=== PATIENT | male | born 1950 | race Caucasian/White ===

== ENCOUNTER 2025-01-07 14:58 | Outpatient (AMB) | payer MEDICARE, SELFPAY ==
--- NOTE | 2025-01-07 15:05 | MHC.PC.OV ---
Vital Signs 01/07/25 15:18 01/07/25 15:37 01/07/25 15:38 Height 5 ft 4 in Weight 152 lb 8 oz BMI 26.2 BP 169/77 H 150/70 H 128/60 Blood Pressure Location Lt brachial Lt brachial Lt brachial Position Sitting Sitting Sitting Respiration 16 Pulse 75 Pulse Source Pulse Oximeter Auscultation Temp 97.9 F Temp Source Oral Pulse Oximetry (%) 96 Oxygen Delivery Method Room Air Intake Visit Reasons: [facility] care Intake Note: patient here for new patient visit Manager Ob Required: No Allergies No Known Allergies Allergy (Verified 01/07/25 15:22) Medication List - Last Reconciled 01/07/25 by Bryson Esqueda CNP amlodipine 10 mg PO DAILY aspirin 81 mg PO DAILY atenolol 100 mg PO DAILY atorvastatin 20 mg PO DAILY blood sugar diagnostic (FreeStyle Lite Strips) As directed insulin degludec (Tresiba FlexTouch U-100 insulin) 20 units subcut BEDTIME lisinopril 40 mg PO DAILY metformin 1,000 mg PO BID tamsulosin mg PO Tobacco use date assessed: 01/07/25 Fall risk assessment: No Falls in past year Last assessed Fall Risk: 01/07/25 Dental Screening Dental Screen Date: 01/07/25 Did you have a dental visit in the last 12 months?: Yes Did you have a dental problem in the last 6 months where you did not have access to dental care?: No Was dental information given to patient?: Patient has dentist HPI HPI Comments History of Present Illness Details 74-year-old male presents to [facility]. He admits to taking his medications as prescribed without adverse reactions. Prior PCP? - Dr Guzman [facility] primary care Last office visit/CPE/labs - Over a year ago Acute issue(s) - None Past Medical History - DM, HTN, HLD, prostate cancer, shingles Surgical History - None Family History - Dad: HTN - Mom: DM Social History - Nonsmoker. Does not vape. Does not drink alcohol. Denies recreational drug use - Has been making healthy dietary choices. Exercises routinely. Generally sleep well Health maintenance - Last eye exam was in 06/[address] Motley: normal. Next eye appt. is in 06/2025. Encourage to sign release form for PCP to obtain ophthalmology record - Last dental visit was 4 months ago - Last tetanus vaccine unknown. Will research record when available - He notes that he is not vaccinated for shingles or pneumonia - Has not been vaccinated for the flu this season; declines vaccination - He notes that he has never had a colonoscopy. Declines referral for a colonoscopy. Cologuard ordered - Last podiatry visit was 10/08/2024 [facility]ists [facility] Medical History (Updated 01/07/25 @ 15:56 by Bryson Esqueda CNP) Diabetes Shingles Prostate cancer Prostate troubles Family History (Updated 01/07/25 @ 15:24 by Josefa Wynne MA) Father High blood pressure Mother Diabetes Social History Housing: House Patient Tobacco Use Status: Never used Tobacco e-Cigarette/Vaping Use: Never Used Second Hand Smoke Exposure: No service: No Current occupational status: retired Current occupational exposures/hazards: No Cognitive needs: No Hearing needs: No Vision needs: No Questionnaire PHQ-9 Over the last 2 weeks, how often have you been bothered by any of the following problems? 1. Little interest or pleasure in doing things: not at all 2. Feeling down, depressed, or hopeless: not at all 3. Trouble falling or staying asleep, or sleeping too much: not at all 4. Feeling tired or having little energy: not at all 5. Poor appetite or overeating: not at all 6. Feeling bad about yourself - or that you are a failure or have let yourself or your family down: not at all 7. Trouble concentrating on things, such as reading the newspaper or watching television: not at all 8. Moving or speaking so slowly that other people could have noticed. Or the opposite - being so fidgety or restless that you have been moving around a lot more than usual: not at all 9. Thoughts that you would be better off or of hurting yourself in some way: not at all Total score: 0 Depression Screening Interpretation: Negative Depression Screening Done: Yes [id number] - PHQ-9 Billing: Yes Source: Developed by Drs. Hector Gaines, Mari Fuller, Ayush Hall and colleagues, with an educational galina from [employer]. Thrive Questionnaire Date Thrive assessed: 01/07/25 I am a: Patient What is your living situation today?: I have a steady place to live Within the past 12 months, did the food you bought not last and you didn't have the money to get more?: Never true Within the past 12 months, did you worry whether your food would run out before you got money to buy more?: Never true Do you have trouble paying for medicines?: No Do you have trouble getting transportation to medical appointments?: No Do you have trouble paying your heating and electricity bill?: No Do you have trouble taking care of your child, family member or friend?: No Do you have trouble with day-to-day activities such as bathing, preparing meals, shopping, managing finances, etc.?: No Are you currently unemployed and looking for a job?: No Are you interested in more education?: No Please select the resources that you would like help with: None Currently or been in a relationship where the following occur: I choose not to answer THRIVE Score: 0 AUDIT C Alcohol Use Questionnaire (AUDIT-C) 1. How often do you have a drink containing alcohol?: Monthly or less 2. How many drinks containing alcohol do you have on a typical day when you are drinking?: 1 or 2 3. How often do you have six or more drinks on one occasion?: Never Total Score: 1 Score Reviewed/Action Taken: No BC-7 AMB Questionnaire BC-7 Date BC - 7 assessed: 01/07/25 Feeling nervous, anxious, or on edge: 0 = Not at all Not being able to stop or control worryin = Not at all Worrying too much about different things: 0 = Not at all Trouble relaxin = Not at all Being so restless that it is hard to sit still: 0 = Not at all Becoming easily annoyed or irritable: 0 = Not at all Feeling afraid as if something awful might happen: 0 = Not at all Total BC-7 score (0-4 normal; 5-9 mild; 10-14 moderate; 15-21 severe): 0 Source: Developed by Drs. Hector Gaines, Mari Fuller, Ayush Hall and colleagues, with an educational galina from [employer]. BC-7 Assessment Billing BC-7 Assessment Tool: BC-7 Assessment 81965 Review of Systems Const Details: Denies chills, Denies fatigue, Denies fever(s), Denies headache(s) and Denies weakness HEENT Denies change in vision, Denies dizziness, Denies headache(s), Denies hearing loss, Denies nasal congestion, Denies sinus pain, Denies sinus pressure and Denies sore throat Card Denies chest pain, Denies lightheadedness, Denies dyspnea and Denies other (palpitations) Resp Denies cough, Denies dyspnea and Denies wheezing GI Denies abdominal pain, Denies melena, Denies hematochezia, Denies change in bowel habits, Denies dyspepsia and Denies nausea Denies hematuria and Denies dysuria Musc Denies abnormal gait, Denies myalgias, Denies arthralgias, Denies numbness and Denies tingling Skin/Breast Denies rash, Denies unusual bruising and Denies wounds Neuro Denies abnormal gait, Denies dizziness, Denies headache(s), Denies memory loss, Denies numbness, Denies Sensory deficit (Neuro), Denies tingling and Denies weakness Psych Denies anxiety, Denies depression and Denies memory loss Endo Denies cold intolerance, Denies fatigue, Denies heat intolerance, Denies polydipsia and Denies polyuria Kd/Lymph Denies easy bleeding and Denies easy bruising Aller/Immun Denies wheezing Physical exam (Primary Care) Vital Signs: Last Vital Signs Temp 97.9 F 01/07/25 15:18 Pulse 75 01/07/25 15:18 Resp 16 01/07/25 15:18 BP 128/60 01/07/25 15:38 Pulse Ox 96 01/07/25 15:18 Oxygen Delivery Method Room Air 01/07/25 15:18 BMI result Body Mass Index 26.2 Tobacco/Smoking Status: Tobacco use Status Tobacco use date assessed 01/07/25 01/07/25 15:15 Patient Tobacco Use Status Never used Tobacco 01/07/25 15:15 e-Cigarette/Vaping Use Never Used 01/07/25 15:15 PHQ-9: PHQ-9 Score PHQ-9: Total score 0 01/07/25 15:31 Depression Screening Interpretation: Negative Thrive Assessment: Date of Thrive Assessment Date Thrive assessed 01/07/25 01/07/25 15:09 Currently or been in a relationship where the following occur: I choose not to answer Const Other: General: no acute distress, well developed, alert and awake Nutritional Appearance: well nourished Orientation/consciousness: patient oriented x3 [facility] Head: Yes normocephalic and Yes atraumatic Ears: hearing grossly normal bilaterally and TM's normal bilaterally General nose exam: Normal external nose present and Normal nares present Mouth: Normal oral and palatal mucosa present and moist mucous membranes Teeth and gingiva: dentition normal Throat: Yes oropharynx normal Eyes Pupils: Equal, round and reactive pupils present and Pupil accommodation reflex normal EOM: EOMs intact bilaterally Neck Neck: Yes normal visual inspection, Yes no lymphadenopathy and Yes trachea midline Thyroid: Thyroid normal Carotids: no bruits Lymphatic: no lymphadenopathy noted Chest Chest palpation & inspection: normal inspection of the chest Resp Effort & Inspection: normal respiratory effort Auscultation: clear to auscultation bilaterally Cardio Rate: regular rate Rhythm: regular rhythm Heart sounds: S1 normal heart sound present, S2 normal heart sound present, no gallops, no murmurs and no rubs Bruits: no abdominal aortic bruits and no carotid bruits GI Palpation (GI): No Abdominal aortic bruit present, Soft to palpation, nontender, No hepatosplenomegaly present and No Rebound tenderness present Auscultation: normal bowel sounds General: Yes no CVA tenderness Back/Spine/Pelvis Back: no CVA tenderness Cervical Spine: cervical ROM normal and No Cervical spine tenderness Thoracic/Lumbar Spine: thoraco-lumbar ROM normal, No pain with thoraco-lumbar ROM, No thoracic spinal tenderness and No lumbar spinal tenderness Skin General: warm and dry. Normal skin color. Normal skin turgor Lesions: no lesions Rashes: no rashes Trauma: no lacerations or abrasions Wounds: no wounds Nails: normal Neuro General: patient oriented x3, gait normal and CN's II-XI intact bilaterally Cranial nerves: Yes Equal, round and reactive pupils present Cognition (Neuro): normal cognition Gait exam (Neuro): Normal gait present Motor exam (neuro): 5/5 motor strength present throughout Sensory Exam: No Sensory deficit (Neuro) Deep tendon reflexes (DTR's): Right patellar reflex intensity grade: 2+ and Left patellar reflex intensity grade: 2+ Extrem General: Yes normal to inspection, No edema and No calf tenderness Psych Appearance: grossly normal Affect: normal affect Attitude: cooperative Thought process: Normal thought process present Results AMB Hemoglobin A1c AMB Hemoglobin A1c 7.9 % Last Edit by SIOBHAN Murphy on 01/07/25 16:06 Results Reviewed Results Reviewed: Laboratory Last Values Hgb A1c (Clinic) 7.9 % (4.0-6.0) H 01/07/25 15:59 Coding Level of Care Code New Pt Level 4 (23003) New Pt Prev Care >65yr (36532) Diagnoses Normal physical examination, routine Z00.00 Hypertension I10 Diabetes E11.9 Prostate cancer C61 Colon cancer screening Z12.11 Vaccine counseling Z71.85 Laboratory tests ordered as part of a complete physical exam (CPE) Z00.00 Additional Codes BC-7 Assessment Billing - BC-7 Assessment Tool: BC-7 Assessment 01774 ([id number]) PHQ-9 - 65752 - PHQ-9 Billing: Yes ([id number]) Time Spent (min) 75 Assessment & Plan Assessment & Plan (1) Normal physical examination, routine: Code(s): Z00.00 - Encounter for general adult medical examination without abnormal findings Category: Medical Plan: No significant functional limitation noted. Continue current treatment regimen. Healthy diet and routine exercise encouraged. Advised to perform blood work and follow-up in 1 month for diabetes and labs review. Return sooner with symptoms or concerns. Verbalized understanding and agreed with the treatment plan. (2) Hypertension: Code(s): I10 - Essential (primary) hypertension Category: Medical Plan: Resting blood pressure is 128/60, within goal of less than 130/80. Continue current treatment regimen. Low-sodium diet encouraged. Will continue to monitor. Verbalized understanding and agreed with the plan. (3) Diabetes: Code(s): E11.9 - Type 2 diabetes mellitus without complications Category: Medical Plan: A1c today is 7.9%, above goal of less than 7.0%. Will increase Tresiba to 25 units at bedtime; encouraged to administer as prescribed. Continue to take metformin as prescribed. ADA diet and routine exercise encouraged. Advised to monitor fasting and nonfasting glucose daily, record readings, and bring to next appointment. Follow-up in 1 month. Verbalized understanding and agreed with the plan. (4) Prostate cancer: Code(s): C61 - Malignant neoplasm of prostate Category: Medical Plan: Continue current treatment regimen. Followed by [facility], and [facility]. (5) Colon cancer screening: Code(s): Z12.11 - Encounter for screening for malignant neoplasm of colon Category: Medical Plan: He notes that he has never had a colonoscopy. Declines referral for a colonoscopy. Cologuard ordered. (6) Vaccine counseling: Code(s): Z71.85 - Encounter for immunization safety counseling Category: Medical Plan: He notes that he is not vaccinated for shingles or pneumonia. Instructed on the importance of vaccination and encouraged to get vaccinated for shingles and pneumonia. She may get a vaccine from the local pharmacy. Verbalized understanding and agreed with the plan. (7) Laboratory tests ordered as part of a complete physical exam (CPE): Code(s): Z00.00 - Encounter for general adult medical examination without abnormal findings Category: Medical Plan: Fasting labs ordered as part of a complete physical exam. Advised to fast for at least 10 hours before getting labs drawn. May drink water Verbalized understanding and agreed with treatment plan. Plan Total time for this visit was 75 minutes. This include 55 minutes with patient, doing physical exam and chronic disease management/treatment, and 20 minutes reviewing, coordinating plan of care, and documenting. Orders: Orders Comprehensive Jones. Panel Fast 01/07/25 Z00.00 - Encounter for general adult medical examination without abnormal findings Microalbumin, Random (w Creat) 01/07/25 Z00.00 - Encounter for general adult medical examination without abnormal findings PSA, Ultra Sensitive 01/07/25 Z00. - Encounter for general adult medical examination without abnormal findings UA CC w/rflx Micro + Cult 01/07/25 Z00. - Encounter for general adult medical examination without abnormal findings Complete Blood Count Auto Diff 01/07/25 Z00. - Encounter for general adult medical examination without abnormal findings Lipid Panel 01/07/25 Z00. - Encounter for general adult medical examination without abnormal findings TSH reflex Free T4 01/07/25 Z00.00 - Encounter for general adult medical examination without abnormal findings Vitamin D 25-OH Total 01/07/25 Z00. - Encounter for general adult medical examination without abnormal findings Referrals Cologuard Test Z12.11 - Encounter for screening for malignant neoplasm of colon, Z12.12 - Encounter for screening for malignant neoplasm of rectum Medications: New insulin degludec (Tresiba FlexTouch U-100 insulin) 25 units (0.25 mL) subcut BEDTIME 15 mL 4RF Patient Instructions: No significant functional limitation noted. Continue current treatment regimen. Healthy diet and routine exercise encouraged. Perform fasting lab work before next visit. Follow-up in 2 weeks for hypertension and labs review. Return sooner with symptoms or concerns. Verbalized understanding and agreed with the treatment plan.
[2025-01-07 15:18] VITALS: BP 169/77; PULSE 75; RESP 16; TEMP 36.6; O2SAT 96; BMI 26.2
[2025-01-07 15:37] VITALS: BP 150/70
[2025-01-07 15:38] VITALS: BP 128/60
--- OUTSIDE RECORDS SUMMARY | 2025-01-07 16:45 | XMS_ITS | Encounter Summary ---
Author Organization [facility] Address [address] [place] [address] Care Team Providers Care Oil Spot Washer Name Role Phone Kiley Ruelas MD Primary Care Provider [phone] Encounter Details Date Type Department Care Team (Late st Contact Info) Description 11/14/2024 Lab Requisition [facility] - Main Lab [address] [facility] [address] Matthew Hansen MD [address] [place] [address] Elevated prostate specific antigen (PSA) Social History Tobacco Use Types Packs/Day Years Used Date Smoking Tobacco: Never Assessed Sex and Gender Information Value Date Recorded Sex Assigned at Not on file Legal Sex Male 9:38 AM EDT Gender Identity Not on file Sexual Orientation Not on file documented as of this encounter Plan of Treatment Not on file documented as of this encounter Procedures Procedure Name Priority Date/Time Associated Diagnosis Comments AP OUTSIDE CONSULT Routine 11/13/2024 Elevated prostate specific antigen (PSA) documented in this encounter Results * Anatomic pathology outside consult (11/13/2024) Final Diagnosis A. Prostate, Left Mid Donnellson Biopsy: Benign prostate tissue. B. Prostate, Left Lat Donnellson Biopsy: Benign prostate tissue. C. Prostate, Left Mid Mid Biopsy: Benign prostate tissue. D. Prostate, Left Lat Mid Biopsy: Benign prostate tissue. E. Prostate, Left Mid Base Biopsy: Benign prostate tissue with chronic inflammation. F. Prostate, Left Lat Base Biopsy: Benign prostate tissue. G. Prostate, Right Mid Donnellson Biopsy: Benign prostate tissue H. Prostate, Right Lat Donnellson Biopsy: Benign prostate tissue. I. Prostate, Right Mid Mid Biopsy: Acinar adenocarcinoma, conventional (usual) type, Liv score 3 + 3 = 6 (Grade group 1). (See note.) The carcinoma involves approximately 20% of the tissue submitted for review and spans approximately 3 mm in greatest dimension in a single core. Note: A small focus of ill-formed glands at one edge of the tumor is attributed to an artifact of processing (squeeze/crush) and is not considered sufficient to warrant a diagnosis of Liv pattern 4 in this core biopsy. (See also parts K and L, below.) J. Prostate, Right Lat Mid Biopsy: Acinar adenocarcinoma, conventional (usual) type, [place]ville score 3 + 3 = 6 (Grade group 1). The carcinoma involves approximately 10% of the tissue submitted for review and spans approximately 1.5 mm in greatest dimension in a single core. K. Prostate, Right Mid Base Biopsy: Acinar adenocarcinoma, conventional (usual) type, Liv score 3 + 4 = 7 (Grade group 2). Longville pattern 4 comprises approximately 10% of the carcinoma. The carcinoma involves 50-55% of the tissue submitted for review and spans approximately 9 mm in greatest dimension in a single core. Perineural invasion is present. L. Prostate, Right Lat Base Biopsy: Acinar adenocarcinoma, conventional (usual) type, [place]ville score 3 + 4 = 7 (Grade group 2). [place]ville pattern 4 comprises approximately 20% of the carcinoma. The carcinoma involves approximately 50% of the tissue submitted for review and spans approximately 8 mm in greatest dimension in a single core. M. Prostate, Right Peripheral Zone Mid Biopsy: Minute focus of acinar adenocarcinoma, conventional (usual) type, too small for definitive grading, involving less than 5% of one tissue core and spanning less than 0.5 mm in greatest dimension. 11/16/2024 3:49 PM EDT [facility] Comment Lead Oxide Mill Tender slide(s) from this case (parts I and L) have been presented at Anatomic Pathology Intradepartmental Review Conference on 11/15/24. 11/16/2024 3:49 PM EDT [facility] Clinical Information Elevated PSA Last PSA total = 10.8 (08/22/24) [id number] 11/16/2024 3:49 PM EDT [facility] Gross Description A. Prostate, Left Mid Donnellson Biopsy: Received, properly labeled, are two H and E stained slides and two unstained slides. B. Prostate, Left Lat Donnellson Biopsy: Received, properly labeled, are two H and E stained slides and two unstained slides. C. Prostate, Left Mid Mid Biopsy: Received, properly labeled, are two H and E stained slides and two unstained slides. D. Prostate, Left Lat Mid Biopsy: Received, properly labeled, are two H and E stained slides and two unstained slides. E. Prostate, Left Mid Base Biopsy: Received, properly labeled, are two H and E stained slides and two unstained slides. F. Prostate, Left Lat Base Biopsy: Received, properly labeled, are two H and E stained slides and two unstained slides. G. Prostate, Right Mid Donnellson Biopsy: Received, properly labeled, are two H and E stained slides and two unstained slides. H. Prostate, Right Lat Donnellson Biopsy: Received, properly labeled, are two H and E stained slides and two unstained slides. I. Prostate, Right Mid Mid Biopsy: Received, properly labeled, are two H and E stained slides and two unstained slides. J. Prostate, Right Lat Mid Biopsy: Received, properly labeled, are two H and E stained slides and two unstained slides. K. Prostate, Right Mid Base Biopsy: Received, properly labeled, are two H and E stained slides and two unstained slides. L. Prostate, Right Lat Base Biopsy: Received, properly labeled, are two H and E stained slides and two unstained slides. M. Prostate, Right Peripheral Zone Mid Biopsy: Received, properly labeled, are two H and E stained slides and two unstained slides. /al 11/16/2024 3:49 PM EDT [facility] Disclaimer Unless otherwise specified, all tissue is 10% NB formalin fixed and paraffin embedded. Technical pathology services provided by [facility] at [address] [place] [address] [address], [place] [address] (CLIA #[id number]/Abby Walsh MD, Folder Taper Operator) 11/16/2024 3:49 PM EDT [facility] Tissue Prostate / Unknown 11/13/20242024 9:46 AM EDT Tissue specimen (specimen) Prostate / Unknown 11/13/2024 11/14/2024 9: 46 AM EDT Tissue specimen (specimen) Prostate / Unknown 11/13/2024 11/14/2024 9: 46 AM EDT Tissue specimen (specimen) Prostate / Unknown 11/13/2024 11/14/2024 9: 46 AM EDT Tissue specimen (specimen) Prostate / Unknown 11/13/2024 11/14/2024 9: 46 AM EDT Tissue specimen (specimen) Prostate / Unknown 11/13/2024 11/14/2024 9: 46 AM EDT Tissue specimen (specimen) Prostate / Unknown 11/13/2024 11/14/2024 9: 46 AM EDT Tissue specimen (specimen) Prostate / Unknown 11/13/2024 11/14/2024 9: 46 AM EDT Tissue specimen (specimen) Prostate / Unknown 11/13/2024 11/14/2024 9: 46 AM EDT Tissue specimen (specimen) Prostate / Unknown 11/13/2024 11/14/2024 9: 46 AM EDT Tissue specimen (specimen) Prostate / Unknown 11/13/2024 11/14/2024 9: 46 AM EDT Tissue specimen (specimen) Prostate / Unknown 11/13/2024 11/14/2024 9: 46 AM EDT Tissue specimen (specimen) Prostate / Unknown 11/13/2024 11/14/2024 9: 46 AM EDT us Matthew Hansen MD LAB PATHOLOGY ORDERABLES Final R esult [facility] ([facility] [address] [place] [address], documented in this encounter Visit Diagnoses Diagnosis Elevated prostate specific antigen (PSA) documented in this encounter Care Teams Oil Spot Washer Relationship Specialty Start Date End Date Kiley Ruelas MD [address] [place] [id number] PCP - General Internal Medicine 11/14/24 documented as of this encounter
== END 2025-01-07 16:35 | disposition home or self-care (01) ==
LOC: HO.HMCFM 14:59
PROVIDERS: PCP Nurse Practitioner Family; Visit Provider Nurse Practitioner Family
DX: E11.9 Type 2 diabetes mellitus without complications (principal)

== ENCOUNTER → 2025-01-07 14:58 | Outpatient (BNVA) | payer MEDICARE, SELFPAY | PROVIDERS: PCP Nurse Practitioner Family; Visit Provider Nurse Practitioner Family | DX: Z00.00 Encounter for general adult medical examination without abnormal findings (principal); E11.9 Type 2 diabetes mellitus without complications; I10 Essential (primary) hypertension; C61 Malignant neoplasm of prostate; Z71.85 Encounter for immunization safety counseling | CPT/HCPCS: 83036; 96127; 99202; 99387 ==

== ENCOUNTER 2025-02-04 10:44 | Outpatient (REF) | payer MEDICARE, SELFPAY ==
--- OUTSIDE RECORDS SUMMARY | 2025-02-04 11:40 | XMS_ITS | Encounter Summary ---
Author Organization [facility] Address [address] [place] [address] Care Team Providers Care Inspector Technician Name Role Phone Kiley Ruelas MD Primary Care Provider [phone] Encounter Details Date Type Department Care Team (Late st Contact Info) Description 11/14/2024 Lab Requisition [facility] - Main Lab [address] [facility] [place] [address] Matthew Hansen MD [address] [place] [address] Elevated prostate specific antigen (PSA) Social History [...] (11/13/2024) Final Diagnosis A. Prostate, Left Mid [place] Biopsy: Benign prostate tissue. B. Prostate, Left Lat [place] Biopsy: Benign prostate tissue. C. Prostate, Left Mid Mid Biopsy: Benign prostate tissue. D. Prostate, Left Lat [place] Biopsy: Benign prostate tissue. E. Prostate, Left Mid [place] Biopsy: Benign prostate tissue with chronic inflammation. F. Prostate, Left Lat [place] Biopsy: Benign prostate tissue. G. Prostate, Right Mid [place] Biopsy: Benign prostate tissue H. Prostate, Right Lat [place] Biopsy: Benign prostate tissue. I. Prostate, Right [...] Mid Biopsy: Acinar adenocarcinoma, conventional (usual) type, [place] score 3 + 3 = 6 (Grade group 1). The carcinoma involves approximately 10% of the tissue submitted for review and spans approximately 1.5 mm in greatest dimension in a single core. K. Prostate, Right Mid [place] Biopsy: Acinar adenocarcinoma, conventional (usual) type, Liv score 3 + 4 = 7 (Grade group 2). [place] pattern 4 comprises approximately 10% of the carcinoma. The carcinoma involves 50-55% of the tissue submitted for review and spans approximately 9 mm in greatest dimension in a single core. Perineural invasion is present. L. Prostate, Right Lat [place] Biopsy: Acinar adenocarcinoma, conventional (usual) type, [place] score 3 + 4 = 7 (Grade group 2). [place] pattern 4 comprises approximately 20% of the [...] in greatest dimension. 11/16/2024 3:49 PM EDT [facility] Comment Well Driller slide(s) from this case (parts I and L) have been presented at Anatomic Pathology Intradepartmental Review Conference on 11/15/24. 11/16/2024 3:49 PM EDT [facility] Clinical Information Elevated PSA Last PSA total = 10.8 (08/22/24) [id number] 11/16/2024 3:49 PM EDT [facility] Gross Description A. Prostate, Left Mid [place] Biopsy: Received, properly labeled, are two H and E stained slides and two unstained slides. B. Prostate, Left Lat [place] Biopsy: Received, properly labeled, are two H [...] two unstained slides. G. Prostate, Right Mid [place] Biopsy: Received, properly labeled, are two H and E stained slides and two unstained slides. H. Prostate, Right Lat [place] Biopsy: Received, properly labeled, are two H [...] unstained slides. /al 11/16/2024 3:49 PM EDT [facility] Disclaimer Unless otherwise specified, all tissue is 10% NB formalin fixed and paraffin embedded. Technical pathology services provided by [facility] at [address] [place] [address] [address], [place] [address] (CLIA #[id number]/Abby Walsh MD, Die Trouble Shooter) 11/16/2024 3:49 PM EDT [facility] Tissue Prostate / Unknown 11/13/20242024 9:46 [...] MD LAB PATHOLOGY ORDERABLES Final R esult [facility] ([facility] [address] [place] [address], documented in this encounter Visit Diagnoses Diagnosis Elevated prostate specific antigen (PSA) documented in this encounter Care Teams Inspector Technician Relationship Specialty Start Date End Date Kiley Ruelas MD [address] [place] [id number] PCP - General Internal Medicine 11/14/24 documented as of this encounter
[2025-02-04 15:15] LABS: Appearance Urine Clear; Glucose Urine UA Negative (Negative); PH 5.5 (5.0-9.0); Specific Gravity - Urine 1.020 (1.005-1.025); UMIC TRIGGER UACC YES
[2025-02-04 15:28] LABS: MANUAL DIFF FLAG NO
[2025-02-04 15:47] LABS: Hematocrit 41.9 % (42.0-52.0); Hemoglobin 13.9 g/dl (14.0-18.0); Imm Gran Abs Auto 0.02 X10*3/uL (0.00-0.03); Imm Gran Pct Auto 0.4 % (0.0-0.4); Lymphocytes Absolute Auto 1.1 X10*3/uL (1.2-4.9); Mean Corpuscular HGB Conc 33.2 g/dl (31.0-36.0); Mean Corpuscular Hemoglobin 28.9 pg (27.0-33.0); Mean Corpuscular Volume 87.1 fL (80.0-98.0); NRBC Abs Auto 0.000 X10*3/uL (0.0-0.012); NRBC Pct Auto 0.0 /100WBC (0.0-0.2); Platelet Count 194 X10*3/uL (160-400); Red Blood Count 4.81 X10*6/uL (4.60-5.80); White Blood Count 5.0 X10*3/uL (4.8-10.8)
[2025-02-04 16:20] LABS: Alanine Aminotransferase 20 U/L (0-40); Albumin Level 4.1 g/dL (3.5-5.0); Alkaline Phosphatase 64 U/L (39-117); Anion Gap 12 (12-20); Aspartate Amino Transferase 33 U/L (5-37); Blood Urea Nitrogen 24 mg/dL (9-16); Calcium 9.3 mg/dL (8.4-10.2); Carbon Dioxide 26 mmol/L (22-29); Chloride 109 mmol/L (96-108); Cholesterol 94 mg/dL (<200); Estimated Glomerular Filt Rate > 60; HDL Cholesterol 25 mg/dL (>40); Potassium 3.8 mmol/L (3.3-5.1); Sodium 143 mmol/L (135-145); Total Protein 6.5 g/dL (6.5-8.0); Triglycerides 64 mg/dL (<150)
[2025-02-04 16:37] LABS: Microalbum/Creatinine Ratio Ur 92.7 ug/mg cr (<30)
[2025-02-09 22:03] LABS: PSA, Ultra Sensitive 7.80 ng/mL
== END 2025-02-04 10:45 | disposition home or self-care (01) ==
LOC: HO.WFDLDS 10:44
PROVIDERS: Visit Provider Nurse Practitioner Family
DX: Z00.00 Encounter for general adult medical examination without abnormal findings (principal)
CPT/HCPCS: 36415; 80053; 80061; 81001; 82043; 82306; 82570; 84153; 84443; 85025

== ENCOUNTER 2025-02-08 11:45 | Outpatient (AMB) | payer MEDICARE, SELFPAY ==
--- NOTE | 2025-02-08 11:48 | MHC.PC.OV ---
Vital Signs 02/08/25 11:55 02/08/25 12:26 Height 5 ft 4 in Weight 149 lb 7 oz BMI 25.6 BP 152/78 H 134/70 Blood Pressure Location Lt brachial Rt brachial Position Sitting Sitting Respiration 15 Pulse 81 Pulse Source Pulse Oximeter Temp 98.4 F Temp Source Temporal Artery Scan Pulse Oximetry (%) 97 Oxygen Delivery Method Room Air Intake Visit Reasons: 1 mos DM, labs review Allergies No Known Allergies Allergy (Verified 02/08/25 11:50) Tobacco use date assessed: 02/08/25 Fall risk assessment: No Falls in past year Last assessed Fall Risk: 02/08/25 Dental Screening Dental Screen Date: 02/08/25 Did you have a dental visit in the last 12 months?: Yes Did you have a dental problem in the last 6 months where you did not have access to dental care?: No Was dental information given to patient?: Patient has dentist HPI HPI Comments History of Present Illness Details 75-year-old male presents for diabetes and recent labs review follow-up. He admits to taking his medications as prescribed without adverse reactions. He has not taking his medications this morning, nor has he had breakfast; he thought he had to do fasting blood work before this visit. He notes that he has been making healthy lifestyle changes. His home blood glucose log from 01/08/2025 to 02/08/2025 has fasting glucose between 71-130, and glucose before dinner between 108-163. He offers no complaints and denies acute symptoms at this time. [facility] Medical History (Updated 02/08/25 @ 12:03 by Bryson Esqueda CNP) Diabetes Shingles Prostate cancer Prostate troubles Family History (Updated 01/07/25 @ 15:24 by Josefa Wynne MA) Father High blood pressure Mother Diabetes Social History Housing: House Alcohol intake: never Patient Tobacco Use Status: Never used Tobacco e-Cigarette/Vaping Use: Never Used Second Hand Smoke Exposure: No service: No Current occupational status: retired Current occupational exposures/hazards: No Cognitive needs: No Hearing needs: No Vision needs: No Questionnaire Thrive Questionnaire Date Thrive assessed: 11/20/24 I am a: Patient What is your living situation today?: I have a steady place to live Within the past 12 months, did the food you bought not last and you didn't have the money to get more?: Never true Within the past 12 months, did you worry whether your food would run out before you got money to buy more?: Never true Do you have trouble paying for medicines?: No Do you have trouble getting transportation to medical appointments?: No Do you have trouble paying your heating and electricity bill?: No Do you have trouble taking care of your child, family member or friend?: No Do you have trouble with day-to-day activities such as bathing, preparing meals, shopping, managing finances, etc.?: No Are you currently unemployed and looking for a job?: No Are you interested in more education?: No Please select the resources that you would like help with: None Currently or been in a relationship where the following occur: I choose not to answer THRIVE Score: 0 BC-7 AMB Questionnaire BC-7 Date BC - 7 assessed: 01/07/25 Source: Developed by Drs. Hector Gaines, Mari Fuller, Ayush Hall and colleagues, with an educational galina from [employer]. Review of Systems Const Details: Const Denies chills, Denies fatigue, Denies fever(s), Denies headache(s) and Denies weakness ENT Denies dizziness and Denies headache(s) Card Denies chest pain, Denies lightheadedness, Denies dyspnea and Denies other (Palpitations) Resp Denies cough, Denies dyspnea, Denies wheezing and Denies other ( shortness of breath) GI Denies abdominal pain, Denies melena, Denies hematochezia, Denies change in bowel habits, Denies dyspepsia and Denies nausea Denies hematuria and Denies dysuria Musc Denies abnormal gait, Denies myalgias, Denies arthralgias, Denies numbness and Denies tingling Skin/Breast Denies rash, Denies unusual bruising and Denies wounds Neuro Denies abnormal gait, Denies dizziness, Denies headache(s), Denies memory loss, Denies numbness, Denies Sensory deficit (Neuro), Denies tingling and Denies weakness Psych Denies anxiety, Denies depression, Denies memory loss Endo Denies cold intolerance, Denies fatigue, Denies heat intolerance, Denies polydipsia and Denies polyuria Aller/Immun Denies wheezing Physical exam (Primary Care) Tobacco/Smoking Status: Tobacco use Status Tobacco use date assessed 01/07/25 02/08/25 11:48 Patient Tobacco Use Status Never used Tobacco 02/08/25 11:48 e-Cigarette/Vaping Use Never Used 02/08/25 11:48 Thrive Assessment: Date of Thrive Assessment Date Thrive assessed 11/20/24 02/08/25 11:48 Currently or been in a relationship where the following occur: I choose not to answer Const Other: General: no acute distress and well developed Nutritional Appearance: well nourished Orientation/consciousness: patient oriented x3 HENMT Head: Yes normocephalic and Yes atraumatic Eyes General: appearance normal, both eyes and all related structures Pupils: Equal, round and reactive pupils present EOM: EOMs intact bilaterally Resp Effort & Inspection: normal respiratory effort Auscultation: clear to auscultation bilaterally Cardio Rate: regular rate Rhythm: regular rhythm Heart sounds: S1 normal heart sound present, S2 normal heart sound present, no gallops, no murmurs and no rubs GI Palpation (GI): No Abdominal aortic bruit present, Soft to palpation, nontender, No hepatosplenomegaly present and No Rebound tenderness present Auscultation: normal bowel sounds General: Yes no CVA tenderness Back/Spine/Pelvis Back: no CVA tenderness Cervical Spine: cervical ROM normal and No Cervical spine tenderness Thoracic/Lumbar Spine: thoraco-lumbar ROM normal, No pain with thoraco-lumbar ROM, No thoracic spinal tenderness and No lumbar spinal tenderness Extrem General: Yes normal to inspection, No edema and No calf tenderness Skin General: warm and dry. Normal skin color. Normal skin turgor Neuro General: patient oriented x3, gait normal and no focal neuro deficit Cranial nerves: Yes Equal, round and reactive pupils present Cognition (Neuro): normal cognition Gait exam (Neuro): Normal gait present Sensory Exam: No Sensory deficit (Neuro) Psych Appearance: grossly normal Affect: normal affect Attitude: cooperative Thought process: Normal thought process present Coding Level of Care Code Est Pt Level 4 (03315) Diagnoses Diabetes E11.9 Hypertension I10 Normocytic anemia D64.9 Microalbuminuria R80.9 Hyperlipidemia E78.5 Assessment & Plan Assessment & Plan (1) Diabetes: Code(s): E11.9 - Type 2 diabetes mellitus without complications Category: Medical Plan: A1c was 7.9% a month ago. His home blood glucose log from 01/08/2025 to 02/08/2025 has fasting glucose between 71-130, and glucose before dinner between 108 and 163. ADA diet and routine exercise encouraged. Will recheck A1c in 2 months. Verbalized understanding and agreed with the plan. (2) Hypertension: Code(s): I10 - Essential (primary) hypertension Category: Medical Plan: Resting blood pressure is 134/70, slightly above goal of less than 130/80. He has not taking his medications this morning Continue current treatment regimen. Low-sodium diet encouraged. Follow-up in 2 months. Verbalized understanding and agreed with the plan. (3) Normocytic anemia: Code(s): D64.9 - Anemia, unspecified Category: Medical Plan: Recent H&H levels are slightly low, 13.9/41.9 respectively, MCV is normal. Likely anemia of chronic disease such as diabetes and hypertension. Will monitor CBC annually or as needed. Verbalized understanding and agreed with the plan. (4) Microalbuminuria: Code(s): R80.9 - Proteinuria, unspecified Category: Medical Plan: Recent urine microalbumin/creatinine ratio is elevated, 92.3. May be related to dehydration or uncontrolled diabetes. Continue current treatment regimen. Adequate hydration encouraged. Perform repeat urine microalbumin lab work before next visit. Follow-up in 2 months. Verbalized understanding and agreed with the plan. (5) Hyperlipidemia: Code(s): E78.5 - Hyperlipidemia, unspecified Category: Medical Plan: Recent HDL is low, 25. Triglycerides, total cholesterol, and LDL levels are normal. LDL is 57, goal is less than 100. Continue current treatment regimen. Advised to limit foods high in saturated fat and avoid foods high in trans fat. Routine exercise encouraged. Will monitor lipid panel level annually or as needed. Verbalized understanding and agreed with the plan. Orders: Orders Microalbumin, Random (w Creat) 2 Months R80.9 - Proteinuria, unspecified
[2025-02-08 11:55] VITALS: BP 152/78; PULSE 81; RESP 15; TEMP 36.9; O2SAT 97; BMI 25.6
--- OUTSIDE RECORDS SUMMARY | 2025-02-08 12:03 | XMS_ITS | Encounter Summary ---
Author Organization [facility] Address [address] [place] [address] Care Team Providers Care Gripper Attacher Name Role Phone Kiley Ruelas MD Primary Care Provider [phone] Encounter Details Date Type Department Care Team (Late st Contact Info) Description 11/14/[address] [facility] - Main Lab [address] [facility] [place] [address] Matthew Hansen MD [address] [place] [address] Elevated prostate specific antigen (PSA) Social History [...] (11/13/2024) Final Diagnosis A. Prostate, Left Mid [place] Biopsy: Benign prostate tissue. B. Prostate, Left Lat [place] Biopsy: Benign prostate tissue. C. Prostate, Left Mid Mid Biopsy: Benign prostate tissue. D. Prostate, Left Lat [place] Biopsy: Benign prostate tissue. E. Prostate, Left Mid [place] Biopsy: Benign prostate tissue with chronic inflammation. F. Prostate, Left Lat [place] Biopsy: Benign prostate tissue. G. Prostate, Right Mid [place] Biopsy: Benign prostate tissue H. Prostate, Right Lat [place] Biopsy: Benign prostate tissue. I. Prostate, Right [...] Mid Biopsy: Acinar adenocarcinoma, conventional (usual) type, [place] score 3 + 3 = 6 (Grade group 1). The carcinoma involves approximately 10% of the tissue submitted for review and spans approximately 1.5 mm in greatest dimension in a single core. K. Prostate, Right Mid [place] Biopsy: Acinar adenocarcinoma, conventional (usual) type, Liv score 3 + 4 = 7 (Grade group 2). [place] pattern 4 comprises approximately 10% of the carcinoma. The carcinoma involves 50-55% of the tissue submitted for review and spans approximately 9 mm in greatest dimension in a single core. Perineural invasion is present. L. Prostate, Right Lat [place] Biopsy: Acinar adenocarcinoma, conventional (usual) type, [place] score 3 + 4 = 7 (Grade group 2). [place] pattern 4 comprises approximately 20% of the [...] in greatest dimension. 11/16/2024 3:49 PM EDT [facility] Comment Supervisor Area slide(s) from this case (parts I and L) have been presented at Anatomic Pathology Intradepartmental Review Conference on 11/15/24. 11/16/2024 3:49 PM EDT [facility] Clinical Information Elevated PSA Last PSA total = 10.8 (08/22/24) [id number] 11/16/2024 3:49 PM EDT [facility] Gross Description A. Prostate, Left Mid [place] Biopsy: Received, properly labeled, are two H and E stained slides and two unstained slides. B. Prostate, Left Lat [place] Biopsy: Received, properly labeled, are two H [...] two unstained slides. G. Prostate, Right Mid [place] Biopsy: Received, properly labeled, are two H and E stained slides and two unstained slides. H. Prostate, Right Lat [place] Biopsy: Received, properly labeled, are two H [...] unstained slides. /al 11/16/2024 3:49 PM EDT [facility] Disclaimer Unless otherwise specified, all tissue is 10% NB formalin fixed and paraffin embedded. Technical pathology services provided by [facility] at [address] [place] [address] [address], [place] [address] (CLIA #[id number]/Abby Walsh MD, Commercial Appraiser) 11/16/2024 3:49 PM EDT [facility] Tissue Prostate / [...] MD LAB PATHOLOGY ORDERABLES Final R esult [facility] [address] [place] [address], documented in this encounter Visit Diagnoses Diagnosis Elevated prostate specific antigen (PSA) documented in this encounter Care Teams Gripper Attacher Relationship Specialty Start Date End Date Kiley Ruelas MD [address] [place] [id number] PCP - General Internal Medicine 11/14/24 documented as of this encounter
[2025-02-08 12:26] VITALS: BP 134/70
== END 2025-02-08 12:37 | disposition home or self-care (01) ==
LOC: HO.HMCFM 11:46
PROVIDERS: PCP Nurse Practitioner Family; Visit Provider Nurse Practitioner Family
DX: E11.9 Type 2 diabetes mellitus without complications (principal); I10 Essential (primary) hypertension; D64.9 Anemia, unspecified; R80.9 Proteinuria, unspecified; E78.5 Hyperlipidemia, unspecified

== ENCOUNTER → 2025-02-08 11:45 | Outpatient (BNVA) | payer MEDICARE, SELFPAY | PROVIDERS: PCP Nurse Practitioner Family; Visit Provider Nurse Practitioner Family | DX: E11.9 Type 2 diabetes mellitus without complications (principal); I10 Essential (primary) hypertension; D64.9 Anemia, unspecified; R80.9 Proteinuria, unspecified; E78.5 Hyperlipidemia, unspecified | CPT/HCPCS: 99212 ==

== ENCOUNTER 2025-04-12 13:04 | Outpatient (REF) | payer MEDICARE, SELFPAY ==
--- OUTSIDE RECORDS SUMMARY | 2025-04-12 13:08 | XMS_ITS | Encounter Summary ---
Author Organization [facility] Address [address] [place] [address] Care Team Providers Care Plastics Worker Name Role Phone Kiley Ruelas MD Primary Care Provider [phone] Encounter Details Date Type Department Care Team (Late st Contact Info) Description 11/14/2024 Lab Requisition [facility] - Main Lab [address] [facility] [place] [address] Matthew Hansen MD [address] [place] [address] Elevated prostate specific antigen (PSA) Social History [...] (11/13/2024) Final Diagnosis A. Prostate, Left Mid [place] Biopsy: Benign prostate tissue. B. Prostate, Left Lat [place] Biopsy: Benign prostate tissue. C. Prostate, Left Mid [place] Biopsy: Benign prostate tissue. D. Prostate, Left Lat [place] Biopsy: Benign prostate tissue. E. Prostate, Left Mid [place] Biopsy: Benign prostate tissue with chronic inflammation. F. Prostate, Left Lat [place] Biopsy: Benign prostate tissue. G. Prostate, Right Mid [place] Biopsy: Benign prostate tissue H. Prostate, Right Lat [place] Biopsy: Benign prostate tissue. I. Prostate, Right [...] + 4 = 7 (Grade group 2). Liv pattern 4 comprises approximately 10% of the carcinoma. The carcinoma involves 50-55% of the tissue submitted for review and spans approximately 9 mm in greatest dimension in a single core. Perineural invasion is present. L. Prostate, Right Lat [place] Biopsy: Acinar adenocarcinoma, conventional (usual) type, Liv score 3 + 4 = 7 (Grade group 2). [place] pattern 4 comprises approximately 20% of the [...] in greatest dimension. 11/16/2024 3:49 PM EDT [facility] Comment Operations Support Analyst slide(s) from this case (parts I and L) have been presented at Anatomic Pathology Intradepartmental Review Conference on 11/15/24. 11/16/2024 3:49 PM EDT [facility] Clinical Information Elevated PSA Last PSA total = 10.8 (08/22/24) [id number] 11/16/2024 3:49 PM EDT [facility] Gross Description A. Prostate, Left Mid [place] Biopsy: Received, properly labeled, are two H and E stained slides and two unstained slides. B. Prostate, Left Lat [place] Biopsy: Received, properly labeled, are two H [...] two unstained slides. G. Prostate, Right Mid [place] Biopsy: Received, properly labeled, are two H and E stained slides and two unstained slides. H. Prostate, Right Lat [place] Biopsy: Received, properly labeled, are two H [...] unstained slides. /al 11/16/2024 3:[address] [facility] Disclaimer Unless otherwise specified, all tissue is 10% NB formalin fixed and paraffin embedded. Technical pathology services provided by [facility] at [address] [place] [address] [address], [place] [address] (CLIA #[id number]/Abby Walsh MD, Barrel Rifler Hook) 11/16/2024 3:[address] [facility] Tissue Prostate / Unknown 11/13/20242024 [...] MD LAB PATHOLOGY ORDERABLES Final R esult [facility] ([facility] [address] [place] [address], documented in this encounter Visit Diagnoses Diagnosis Elevated prostate specific antigen (PSA) documented in this encounter Care Teams Plastics Worker Relationship Specialty Start Date End Date Kiley Ruelas MD [address] [place] [id number] PCP - General Internal Medicine 11/14/24 documented as of this encounter
--- OUTSIDE RECORDS SUMMARY | 2025-04-12 13:08 | XMS_ITS | Clinical Summary ---
Author Organization [address] Address [address] [place] [address] Phone Care Team Providers Care Wildlife Ecologist Name Role Phone Kiley Ruelas MD Primary Care Provider [phone] Social History Tobacco Use Types Packs/Day Years Used Date Smoking Tobacco: Never Assessed Sex and Gender Information Value Date Recorded Sex Assigned at Not on file Legal Sex Male 9:38 AM EDT Gender Identity Not on file Sexual Orientation Not on file Plan of Treatment Health Maintenance Due Date Last Done Comments DTaP,Tdap,and Td Vaccines (1 - Tdap) 01/24/1971 Pneumococcal Vaccine: 50+ Ye ars (1 of 1 - PCV) 01/24/2002 Zoster Vaccines (1 of 2) 01/24/2002 Depression Screening 07/25/2024 Abdominal Aortic Aneurysm (A AA) Screen 11/15/2024 Cholesterol Screening (Lipid Panel) 11/15/2024 Colorectal Cancer Screening: Colonoscopy 11/15/2024 Falls Risk Assessment 11/15/2024 Hepatitis C Screening 11/15/2024 Medicare Annual Wellness Visit 11/15/2024 Social Influencers of Health Screening 11/15/2024 COVID-19 Vaccine ( - 2023-2 5 season) 2025 Influenza Vaccine (#1) 2025 RSV Immunization Adult Patie nts (1 - 1-dose 75+ series) 01/24/2027 HIB Vaccines Aged Out No longer eligi ble based on patient's age to complete this topic HPV Vaccines Aged Out No longer eligi ble based on patient's age to complete this topic Hepatitis A Vaccines Aged Out No long er eligible based on patient's age to complete this topic Hepatitis B Vaccines Aged Out No long er eligible based on patient's age to complete this topic IPV Vaccines Aged Out No longer eligi ble based on patient's age to complete this topic MMR Vaccines Aged Out No longer eligi ble based on patient's age to complete this topic Meningococcal ACWY Vaccine Aged Out N o longer eligible based on patient's age to complete this topic Meningococcal B Vaccine Aged Out No l onger eligible based on patient's age to complete this topic RSV Immunization Patients Un imleda 20 months Aged Out No longer eligible b ased on patient's age to complete this topic Varicella Vaccines Aged Out No longer eligible based on patient's age to complete this topic Insurance [employer] Care Teams Wildlife Ecologist Relationship Specialty Start Date End Date Kiley Ruelas MD [address] [place] [address] [address] [place], [place] [phone] PCP - General Internal Medicine 11/14/24
[2025-04-12 14:38] LABS: Appearance Urine Clear; Glucose Urine UA >=1000 mg/dL (Negative); PH 5.5 (5.0-9.0); Specific Gravity - Urine >= 1.030 (1.005-1.025); UMIC TRIGGER UACC YES
[2025-04-12 15:14] LABS: Microalbum/Creatinine Ratio Ur 118.9 ug/mg cr (<30)
== END 2025-04-12 13:05 | disposition home or self-care (01) ==
LOC: HO.WFDLDS 13:04
PROVIDERS: Visit Provider Nurse Practitioner Family
DX: R80.9 Proteinuria, unspecified (principal)
CPT/HCPCS: 81001; 82043; 82570

== ENCOUNTER 2025-04-15 10:00 | Outpatient (AMB) | payer MEDICARE, SELFPAY ==
--- NOTE | 2025-04-15 10:15 | MHC.PC.OV ---
Vital Signs 04/15/25 10:22 04/15/25 10:54 Height 5 ft 4 in Weight 161 lb 2 oz BMI 27.7 BP 175/81 H 124/60 Blood Pressure Location Lt brachial Lt brachial Position Sitting Sitting Respiration 16 Pulse 75 Pulse Source Pulse Oximeter Temp 99 F Temp Source Oral Pulse Oximetry (%) 97 Oxygen Delivery Method Room Air Intake Visit Reasons: 2 mos DM, HTN, microalbuminuria - see comment Intake Note: patient here for 2 months DM, HTN and microalbuminuria Flap Curer Required: No Allergies No Known Allergies Allergy (Verified 04/15/25 10:48) Medication List - Last Reconciled 04/15/25 by Bryson Esqueda CNP amlodipine 10 mg PO DAILY aspirin 81 mg PO DAILY atenolol 100 mg PO DAILY atorvastatin 20 mg PO DAILY blood sugar diagnostic (FreeStyle Lite Strips) As directed finasteride 5 mg PO DAILY insulin degludec 25 units subcut BEDTIME lisinopril 40 mg PO DAILY metformin 1,000 mg PO BID tamsulosin mg PO Tobacco use date assessed: 04/15/25 Fall risk assessment: No Falls in past year Last assessed Fall Risk: 04/15/25 Dental Screening Dental Screen Date: 04/15/25 Did you have a dental visit in the last 12 months?: Yes Did you have a dental problem in the last 6 months where you did not have access to dental care?: No Was dental information given to patient?: Patient has dentist HPI HPI Comments History of Present Illness Details 75-year-old male presents for hypertension, diabetes, and microalbuminuria follow-up. He admits to taking his medications as prescribed without adverse reactions. His home blood glucose average between 77 and less than 200. He notes that often consumes foods that are high in carbs. He exercises routinely. He offers no complaints and denies acute symptoms at this time. [facility] Medical History (Updated 04/15/25 @ 11:04 by Bryson Esqueda CNP) Diabetes Shingles Prostate cancer Prostate troubles Family History Father High blood pressure Mother Diabetes Social History (Updated 02/08/25 @ 11:55 by Cheryle Thorne MA) Housing: House Alcohol intake: never Patient Tobacco Use Status: Never used Tobacco e-Cigarette/Vaping Use: Never Used Second Hand Smoke Exposure: No service: No Current occupational status: retired Current occupational exposures/hazards: No Cognitive needs: No Hearing needs: No Vision needs: No Questionnaire Thrive Questionnaire Date Thrive assessed: 11/20/24 I am a: Patient What is your living situation today?: I have a steady place to live Within the past 12 months, did the food you bought not last and you didn't have the money to get more?: Never true Within the past 12 months, did you worry whether your food would run out before you got money to buy more?: Never true Do you have trouble paying for medicines?: No Do you have trouble getting transportation to medical appointments?: No Do you have trouble paying your heating and electricity bill?: No Do you have trouble taking care of your child, family member or friend?: No Do you have trouble with day-to-day activities such as bathing, preparing meals, shopping, managing finances, etc.?: No Are you currently unemployed and looking for a job?: No Are you interested in more education?: No Please select the resources that you would like help with: None Currently or been in a relationship where the following occur: I choose not to answer THRIVE Score: 0 BC-7 AMB Questionnaire BC-7 Date BC - 7 assessed: 01/07/25 Source: Developed by Drs. Hector Gaines, Mari Fuller, Ayush Hall and colleagues, with an educational galina from [employer]. Review of Systems Const Details: Const Denies chills, Denies fatigue, Denies fever(s), Denies headache(s) and Denies weakness ENT Denies dizziness and Denies headache(s) Card Denies chest pain, Denies lightheadedness, Denies dyspnea and Denies other (Palpitations) Resp Denies cough, Denies dyspnea, Denies wheezing and Denies other ( shortness of breath) GI Denies abdominal pain, Denies melena, Denies hematochezia, Denies change in bowel habits, Denies dyspepsia and Denies nausea Denies hematuria and Denies dysuria Musc Denies abnormal gait, Denies myalgias, Denies arthralgias, Denies numbness and Denies tingling Skin/Breast Denies rash, Denies unusual bruising and Denies wounds Neuro Denies abnormal gait, Denies dizziness, Denies headache(s), Denies memory loss, Denies numbness, Denies Sensory deficit (Neuro), Denies tingling and Denies weakness Psych Denies anxiety, Denies depression, Denies memory loss Endo Denies cold intolerance, Denies fatigue, Denies heat intolerance, Denies polydipsia and Denies polyuria Aller/Immun Denies wheezing Physical exam (Primary Care) Vital Signs: Last Vital Signs Temp 99 F 04/15/25 10:22 Pulse 75 04/15/25 10:22 Resp 16 04/15/25 10:22 BP 175/81 H 04/15/25 10:22 Pulse Ox 97 04/15/25 10:22 Oxygen Delivery Method Room Air 04/15/25 10:22 BMI result Body Mass Index 27.7 Tobacco/Smoking Status: Tobacco use Status Tobacco use date assessed 04/15/25 04/15/25 10:25 Patient Tobacco Use Status Never used Tobacco 04/15/25 10:18 e-Cigarette/Vaping Use Never Used 04/15/25 10:18 Thrive Assessment: Date of Thrive Assessment Date Thrive assessed 11/20/24 04/15/25 10:18 Currently or been in a relationship where the following occur: I choose not to answer Const Other: General: no acute distress and well developed Nutritional Appearance: well nourished Orientation/consciousness: patient oriented x3 HENMT Head: Yes normocephalic and Yes atraumatic Eyes General: appearance normal, both eyes and all related structures Pupils: Equal, round and reactive pupils present EOM: EOMs intact bilaterally Resp Effort & Inspection: normal respiratory effort Auscultation: clear to auscultation bilaterally Cardio Rate: regular rate Rhythm: regular rhythm Heart sounds: S1 normal heart sound present, S2 normal heart sound present, no gallops, no murmurs and no rubs GI Palpation (GI): No Abdominal aortic bruit present, Soft to palpation, nontender, No hepatosplenomegaly present and No Rebound tenderness present Auscultation: normal bowel sounds General: Yes no CVA tenderness Back/Spine/Pelvis Back: no CVA tenderness Cervical Spine: cervical ROM normal and No Cervical spine tenderness Thoracic/Lumbar Spine: thoraco-lumbar ROM normal, No pain with thoraco-lumbar ROM, No thoracic spinal tenderness and No lumbar spinal tenderness Extrem General: Yes normal to inspection, No edema and No calf tenderness Skin General: warm and dry. Normal skin color. Normal skin turgor Neuro General: patient oriented x3, gait normal and no focal neuro deficit Cranial nerves: Yes Equal, round and reactive pupils present Cognition (Neuro): normal cognition Gait exam (Neuro): Normal gait present Sensory Exam: No Sensory deficit (Neuro) Psych Appearance: grossly normal Affect: normal affect Attitude: cooperative Thought process: Normal thought process present Results AMB Hemoglobin A1c AMB Hemoglobin A1c 7.9 % Last Edit by Josefa Wynne MA on 04/15/25 11:04 Coding Level of Care Code Est Pt Level 4 (79363) Diagnoses Hypertension I10 Diabetes E11.9 Microalbuminuria R80.9 Encounter for colorectal cancer screening using Cologuard test Z12.11; Z12.12 Assessment & Plan Assessment & Plan (1) Hypertension: Code(s): I10 - Essential (primary) hypertension Category: Medical Plan: Resting blood pressure is 124/60, within goal of less than 130/80. Continue current treatment regimen. Low-sodium diet encouraged. Follow-up in 3 months or sooner with symptoms or concerns. Verbalized understanding and agreed with the plan. (2) Diabetes: Code(s): E11.9 - Type 2 diabetes mellitus without complications Category: Medical Plan: A1c today is 7.9%, above goal of less than 7.0%. Previous A1c was 7.9%. Tresiba increased to 30 units at bedtime; advised to administer as prescribed. Continue to take metformin as prescribed. ADA diet and routine exercise encouraged. Will recheck A1c in 3 months. Verbalized understanding and agreed with the plan. (3) Microalbuminuria: Code(s): R80.9 - Proteinuria, unspecified Category: Medical Plan: Recent urine microalbumin/creatinine ratio is elevated, 118.9, previous level was 92.7. Likely due to uncontrolled diabete or dehydration or both. Instructed on importance of management of his diabetes. Adequate hydration encouraged. Will recheck urine microalbumin in 3 months. Verbalized understanding and agreed with the plan. (4) Encounter for colorectal cancer screening using Cologuard test: Code(s): Z12.11 - Encounter for screening for malignant neoplasm of colon; Z12.12 - Encounter for screening for malignant neoplasm of rectum Category: Medical Plan: Recent negative Cologuard test reviewed with the patient. Orders: Orders AMB Hemoglobin A1c Today Z13.9 - Encounter for screening, unspecified Medications: Changed From insulin degludec 25 units subcut BEDTIME To insulin degludec 30 units (0.3 mL) subcut BEDTIME 15 mL 4RF
[2025-04-15 10:22] VITALS: BP 175/81; PULSE 75; RESP 16; TEMP 37.2; O2SAT 97; BMI 27.7
[2025-04-15 10:54] VITALS: BP 124/60
--- OUTSIDE RECORDS SUMMARY | 2025-04-15 12:16 | XMS_ITS | Encounter Summary ---
Author Organization [facility] Address [address] [place] [address] Care Team Providers Care Postal Service Window Clerk Name Role Phone Kiley Ruelas MD Primary Care Provider [phone] Encounter Details Date Type Department Care Team (Late st Contact Info) Description 11/14/2024 Lab Requisition [facility] - Main Lab [address] [facility] [place] [address] Matthew Hansen MD [address] [place] [address] Elevated prostate specific antigen (PSA) Social History [...] (11/13/2024) Final Diagnosis A. Prostate, Left Mid [place] Biopsy: Benign prostate tissue. B. Prostate, Left Lat [place] Biopsy: Benign prostate tissue. C. Prostate, Left Mid Mid Biopsy: Benign prostate tissue. D. Prostate, Left Lat [place] Biopsy: Benign prostate tissue. E. Prostate, Left Mid [place] Biopsy: Benign prostate tissue with chronic inflammation. F. Prostate, Left Lat [place] Biopsy: Benign prostate tissue. G. Prostate, Right Mid [place] Biopsy: Benign prostate tissue H. Prostate, Right Lat [place] Biopsy: Benign prostate tissue. I. Prostate, Right [...] + 4 = 7 (Grade group 2). [place] pattern 4 comprises approximately 20% of the [...] in greatest dimension. 11/16/2024 3:49 PM EDT [facility] Comment Cisco Network Engineer slide(s) from this case (parts I and L) have been presented at Anatomic Pathology Intradepartmental Review Conference on 11/15/24. 11/16/2024 3:49 PM EDT [facility] Clinical Information Elevated PSA Last PSA total = 10.8 (08/22/24) [id number] 11/16/2024 3:49 PM EDT [facility] Gross Description A. Prostate, Left Mid [place] Biopsy: Received, properly labeled, are two H and E stained slides and two unstained slides. B. Prostate, Left Lat [place] Biopsy: Received, properly labeled, are two H [...] two unstained slides. G. Prostate, Right Mid [place] Biopsy: Received, properly labeled, are two H and E stained slides and two unstained slides. H. Prostate, Right Lat [place] Biopsy: Received, properly labeled, are two H [...] unstained slides. /al 11/16/2024 3:49 PM EDT [facility] Disclaimer Unless otherwise specified, all tissue is 10% NB formalin fixed and paraffin embedded. Technical pathology services provided by [facility] at [address] [place] [address] [address], [place] [address] (CLIA #[id number]/Abby Walsh MD, Tool And Cutter Grinder) 11/16/2024 3:49 PM EDT [facility] Tissue Prostate / Unknown 11/13/20242024 [...] MD LAB PATHOLOGY ORDERABLES Final R esult [facility] [address] [place] [address], documented in this encounter Visit Diagnoses Diagnosis Elevated prostate specific antigen (PSA) documented in this encounter Care Teams Postal Service Window Clerk Relationship Specialty Start Date End Date Kiley Ruelas MD [address] [place] [id number] PCP - General Internal Medicine 11/14/24 documented as of this encounter
--- OUTSIDE RECORDS SUMMARY | 2025-04-15 12:16 | XMS_ITS | Clinical Summary ---
Author Organization [address] Address [address] [place] [address] Phone Care Team Providers Care Target Setter Name Role Phone Kiley Ruelas MD Primary Care Provider [phone] Social History Tobacco Use Types Packs/Day Years [...] complete this topic RSV Immunization Patients Un imelda 20 months Aged Out No longer eligible b ased on patient's age to complete this topic Varicella Vaccines Aged Out No longer eligible based on patient's age to complete this topic Insurance [employer] Care Teams Target Setter Relationship Specialty Start Date End Date Kiley Ruelas MD [address] [place] [address] [address] [place], [place] [phone] PCP - General Internal Medicine 11/14/24
== END 2025-04-15 11:00 | disposition home or self-care (01) ==
LOC: HO.HMCFM 10:01
PROVIDERS: PCP Nurse Practitioner Family; Visit Provider Nurse Practitioner Family
DX: I10 Essential (primary) hypertension (principal); E11.9 Type 2 diabetes mellitus without complications; R80.9 Proteinuria, unspecified; Z12.11 Encounter for screening for malignant neoplasm of colon; Z12.12 Encounter for screening for malignant neoplasm of rectum; Z13.9 Encounter for screening, unspecified

== ENCOUNTER → 2025-04-15 10:00 | Outpatient (BNVA) | payer MEDICARE, SELFPAY | PROVIDERS: PCP Nurse Practitioner Family; Visit Provider Nurse Practitioner Family | DX: I10 Essential (primary) hypertension (principal); E11.9 Type 2 diabetes mellitus without complications; R80.9 Proteinuria, unspecified | CPT/HCPCS: 83036; 99212 ==

== ENCOUNTER 2025-07-22 14:49 | Outpatient (AMB) | payer MEDICARE, SELFPAY ==
--- NOTE | 2025-07-22 14:54 | A.OFFPC_ITS ---
Vital Signs 07/22/25 15:00 Height 5 ft 4 in Weight 160 lb 8 oz BMI 27.5 BP 181/83 H Blood Pressure Location Rt brachial Position Sitting Respiration 16 Pulse 70 Pulse Source Pulse Oximeter Temp 97.4 F Temp Source Oral Pulse Oximetry (%) 98 Oxygen Delivery Method Room Air Intake Visit Reasons: Rashaad Dheeraj / f/u 3 mos HTN, DM, microalbuminuria Intake Note: patient here for RASHAAD Dheeraj/ f/u 3 mos for HTN, DM and microalbuminuria Inclined Railway Operator Required: No Allergies No Known Allergies Allergy (Verified 07/22/25 14:59) Tobacco use date assessed: 07/22/25 Fall risk assessment: No Falls in past year Last assessed Fall Risk: 07/22/25 Dental Screening Dental Screen Date: 07/22/25 Did you have a dental visit in the last 12 months?: Yes Did you have a dental problem in the last 6 months where you did not have access to dental care?: No Was dental information given to patient?: Patient has dentist HPI HPI Comments History of Present Illness Details 75-year-old male presents for hypertensi on, hld, diabetes, BPH follow- up. DM: On metformin, insulin 30 units qhs +alb/cr. CV: On lisinopril, atenolol, amlodipine PFSH Medical History (Updated 04/15/25 @ 11:04 by Bryson Esqueda CNP) Diabetes Shingles Prostate cancer Prostate troubles Family History Father High blood pressure Mother Diabetes Social History (Updated 02/08/25 @ 11:55 by Cheryle Thorne MA) Housing: House Alcohol intake: never Patient Tobacco Use Status: Never used Tobacco e-Cigarette/Vaping Use: Never Used Second Hand Smoke Exposure: No service: No Current occupational status: retired Current occupational exposures/hazards: No Cognitive needs: No Hearing needs: No Vision needs: No Questionnaire Thrive Questionnaire Date Thrive assessed: 11/20/24 I am a: Patient What is your living situation today?: I have a steady place to live Within the past 12 months, did the food you bought not last and you didn't have the money to get more?: Never true Within the past 12 months, did you worry whether your food would run out before you got money to buy more?: Never true Do you have trouble paying for medicines?: No Do you have trouble getting transportation to medical appointments?: No Do you have trouble paying your heating and electricity bill?: No Do you have trouble taking care of your child, family member or friend?: No Do you have trouble with day-to-day activities such as bathing, preparing meals, shopping, managing finances, etc.?: No Are you currently unemployed and looking for a job?: No Are you interested in more education?: No Currently or been in a relationship where the following occur: I choose not to answer THRIVE Score: 0 BC-7 AMB Questionnaire BC-7 Date BC - 7 assessed: 01/07/25 Source: Developed by Drs. Hector Gaines, Mari Fuller, Ayush Hall and colleagues, with an educational galina from [employer]. Physical exam (Primary Care) Vital Signs: Last Vital Signs Temp 97.4 F 07/22/25 15:00 Pulse 70 07/22/25 15:00 Resp 16 07/22/25 15:00 BP 181/83 H 07/22/25 15:00 Pulse Ox 98 07/22/25 15:00 Oxygen Delivery Method Room Air 07/22/25 15:00 BMI result Body Mass Index 27.5 Tobacco/Smoking Status: Tobacco use Status Tobacco use date assessed 07/22/25 07/22/25 15:07 Patient Tobacco Use Status Never used Tobacco 07/22/25 14:55 e-Cigarette/Vaping Use Never Used 07/22/25 14:55 Thrive Assessment: Date of Thrive Assessment Date Thrive assessed 11/20/24 07/22/25 14:55 Currently or been in a relationship where the following occur: I choose not to answer Results AMB Hemoglobin A1c AMB Hemoglobin A1c 7.8 % Last Edit by ZAHIDA Baltazar on 07/22/25 15:17 Results Reviewed Results Reviewed: Laboratory Last Values Hgb A1c (Clinic) 7.8 % (4.0-6.0) H 07/22/25 15:16 Coding Assessment & Plan Assessment & Plan Orders: Orders Complete Blood Count Auto Diff Today E11.9 - Type 2 diabetes mellitus without complications, E78.5 - Hyperlipidemia, unspecified, I10 - Essential (primary) hypertension Comprehensive Met. Panel Today E11.9 - Type 2 diabetes mellitus without complications, E78.5 - Hyperlipidemia, unspecified, I10 - Essential (primary) hypertension Microalbumin, Random (w Creat) Today E11.9 - Type 2 diabetes mellitus without complications, E78.5 - Hyperlipidemia, unspecified, I10 - Essential (primary) hypertension AMB Hemoglobin A1c Today E11.9 - Type 2 diabetes mellitus without complications Hemoglobin A1c Today E11.9 - Type 2 diabetes mellitus without complications, E78.5 - Hyperlipidemia, unspecified, I10 - Essential (primary) hypertension Lipid Panel Today E11.9 - Type 2 diabetes mellitus without complications, E78.5 - Hyperlipidemia, unspecified, I10 - Essential (primary) hypertension Medications: New metformin 1,000 mg PO BID 90 tabs 3RF aspirin 81 mg PO DAILY 90 tabs 3RF atenolol 100 mg PO DAILY 90 tabs 3RF lisinopril 40 mg PO DAILY 90 tabs 3RF Changed From amlodipine 10 mg PO DAILY To amlodipine for refills 10 mg PO DAILY 90 tabs 3RF Refilled atorvastatin 20 mg PO DAILY 90 tabs 3RF 90 days Patient Instructions: Try to lower sugar and carbs. Goal A1C is less 7.0%. Fasting glucose should be between 80-130. Additional medications we could add for diabetic control to consider would be pioglitazone, truliclouise, jaquanempic, sekou, jenni, cassga. I do not want to increase your insulin b/c you have had some lows when you miss meals.
[2025-07-22 15:00] VITALS: BP 181/83; PULSE 70; RESP 16; TEMP 36.3; O2SAT 98; BMI 27.5
--- OUTSIDE RECORDS SUMMARY | 2025-07-22 17:11 | XMS_ITS | Clinical Summary ---
Author Organization [address] [place] [address] Address [address] [place] [address] Phone Care Team Providers Care Rn Hospice Name Role Phone Kiley Ruelas MD Primary Care Provider Social History Tobacco Use Types Packs/Day Years Used Date Smoking Tobacco: Never Assessed Sex and Gender Information Value Date Recorded Sex Assigned at Not on file Legal Sex Male 9:38 AM EDT Gender Identity Not on file Sexual Orientation Not on file Plan of Treatment Health Maintenance Due Date Last Done Comments Colorectal Cancer Screening: Colonoscopy 1950 DTaP,Tdap,and Td Vaccines (1 - Tdap) 01/24/1971 Pneumococcal Vaccine: 50+ Ye ars (1 of 1 - PCV) 01/24/2002 Zoster Vaccines (1 of 2) 01/24/2002 Depression Screening 07/25/2024 Abdominal Aortic Aneurysm (A AA) Screen 11/15/2024 Cholesterol Screening (Lipid Panel) 11/15/2024 Falls Risk Assessment 11/15/2024 Hepatitis C Screening 11/15/2024 Medicare Annual Wellness Visit 11/15/2024 Social Influencers of Health Screening 11/15/2024 COVID-19 Vaccine (1 - 2024-2 6 season) 2025 Influenza Vaccine (#1) 2025 RSV [...] [employer] [employer] Care Teams Rn Hospice Relationship Specialty Start Date End Date Kiley Ruelas MD [address] [place] [address] [address] [place], [place] [phone] PCP - General Internal Medicine 11/14/24
--- OUTSIDE RECORDS SUMMARY | 2025-07-22 17:11 | XMS_ITS | Encounter Summary ---
Author Organization [facility] Address [address] [place] [address] Care Team Providers Care Belt Weaver Name Role Phone Kiley Ruelas MD Primary Care Provider [phone] Encounter Details Date Type Department Care Team (Late st Contact Info) Description 11/14/2024 Lab Requisition [facility] - Main Lab [address] [facility] [address] Matthew Hansen MD [address] [place] [address] Elevated prostate specific antigen (PSA) Social History [...] (11/13/2024) Final Diagnosis A. Prostate, Left Mid [place] Biopsy: Benign prostate tissue. B. Prostate, Left Lat [place] Biopsy: Benign prostate tissue. C. Prostate, Left Mid [place] Biopsy: Benign prostate tissue. D. Prostate, Left Lat [place] Biopsy: Benign prostate tissue. E. Prostate, Left Mid [place] Biopsy: Benign prostate tissue with chronic inflammation. F. Prostate, Left Lat [place] Biopsy: Benign prostate tissue. G. Prostate, Right Mid [place] Biopsy: Benign prostate tissue H. Prostate, Right Lat [place] Biopsy: Benign prostate tissue. I. Prostate, Right Mid [place] Biopsy: Acinar adenocarcinoma, conventional (usual) type, [place] score 3 + 3 = 6 (Grade [...] Mid Biopsy: Acinar adenocarcinoma, conventional (usual) type, [place] score 3 + 3 = 6 (Grade group 1). The carcinoma involves approximately 10% of the tissue submitted for review and spans approximately 1.5 mm in greatest dimension in a single core. K. Prostate, Right Mid [place] Biopsy: Acinar adenocarcinoma, conventional (usual) type, [place] score 3 + 4 = 7 (Grade group 2). [place] pattern 4 comprises approximately 10% of the carcinoma. The carcinoma involves 50-55% of the tissue submitted for review and spans approximately 9 mm in greatest dimension in a single core. Perineural invasion is present. L. Prostate, Right Lat [place] Biopsy: Acinar adenocarcinoma, conventional (usual) type, [place] score 3 + 4 = 7 (Grade group 2). [place] pattern 4 comprises approximately 20% of the [...] in greatest dimension. 11/16/2024 3:49 PM EDT [facility] at 1549 EDT Comment [employer] slide(s) from this case (parts I and L) have been presented at Anatomic Pathology Intradepartmental Review Conference on 11/15/24. 11/16/2024 3:49 PM EDT [facility] Clinical Information Elevated PSA Last PSA total = 10.8 (08/22/24) [id number] 11/16/2024 3:49 PM EDT [facility] Gross Description A. Prostate, Left Mid [place] Biopsy: Received, properly labeled, are two H and E stained slides and two unstained slides. B. Prostate, Left Lat [place] Biopsy: Received, properly labeled, are two H [...] two unstained slides. G. Prostate, Right Mid [place] Biopsy: Received, properly labeled, are two H and E stained slides and two unstained slides. H. Prostate, Right Lat [place] Biopsy: Received, properly labeled, are two H [...] unstained slides. /al 11/16/2024 3:49 PM EDT [facility] Disclaimer Unless otherwise specified, all tissue is 10% NB formalin fixed and paraffin embedded. Technical pathology services provided by [facility] at [address] [place] [address] [address], [place] [address] (CLIA #[id number]/Abby Walsh MD, Petroleum Engineer) 11/16/2024 3:49 PM EDT [facility] Tissue Prostate / Unknown [...] MD LAB PATHOLOGY ORDERABLES Final R esult [facility] [address] [place] [address], documented in this encounter Visit Diagnoses Diagnosis Elevated prostate specific antigen (PSA) documented in this encounter Care Teams Belt Weaver Relationship Specialty Start Date End Date Kiley Ruelas MD [address] [place] [id number] PCP - General Internal Medicine 11/14/24 documented as of this encounter
== END 2025-07-22 15:34 | disposition home or self-care (01) ==
LOC: HO.HMCFM 14:50
PROVIDERS: PCP Internal Medicine; Visit Provider Internal Medicine
DX: E11.9 Type 2 diabetes mellitus without complications (principal)

== ENCOUNTER → 2025-07-22 14:49 | Outpatient (BNVA) | payer MEDICARE, SELFPAY | PROVIDERS: PCP Nurse Practitioner Family; Visit Provider Internal Medicine | DX: E11.65 Type 2 diabetes mellitus with hyperglycemia (principal); C61 Malignant neoplasm of prostate; I10 Essential (primary) hypertension; Z79.4 Long term (current) use of insulin; Z79.84 Long term (current) use of oral hypoglycemic drugs; Z79.899 Other long term (current) drug therapy | CPT/HCPCS: 83036; 99212 ==